=== PATIENT | female | born 1955 | race Caucasian/White ===

== ENCOUNTER 2016-09-27 09:36 | Day surgery (SDC) | payer BC, OTHER ==
[2016-09-22 08:05] VITALS: BMI 25.4
[~2016-09-27 09:36] MED LIST: DEXAMETHASONE SOD PHOSPHATE 10 MG/ML 1 ML VIAL IV ONE; LACTATED RINGERS 1,000 ML IV SCH; MIDAZOLAM 2 MG/2 ML VIAL IV PRN; ONDANSETRON 4 MG/2 ML VIAL IVP ONE; Pre Op ABX Message 1 EACH MISC MISCELLANE ONE
[2016-09-27] MEDS ORDERED: LIDOCAINE 1% 20 ML VIAL (10MG/ML) FOR IV START INTRADERMA ONE (10:44)
[2016-09-27] MEDS ORDERED: ceFAZolin 1,000 MG in DEXTROSE/WATER 1 50ML.BAG IVPB STA (10:45)
[2016-09-27 10:58] LABS: Basophils % (A) 1 %; CH 30.3; CHCM 34.1; Eosinophils # (A) 0.2 k/uL (0-0.7); Eosinophils % (A) 3 %; HCT 38.3 % (34.0-46.0); HDW 2.72; HGB 12.9 gm/dL (11.4-16.0); Luc # (Auto) 0.14; Luc % (Auto) 2; Lymphocytes # (A) 2.1 k/uL (1.0-4.8); Lymphocytes % (A) 37 %; MCHC 33.7 g/dL (31.0-37.0); Mean Platelet Volume 6.8; Monocytes # (A) 0.3 k/uL (0-1.0); Monocytes % (A) 5 %; Neutrophils % (A) 53 %; RDW 13.9 % (11.5-15.5); WBC 5.6 k/uL (3.8-10.6); WBC (Perox) 5.75
[2016-09-27] MEDS ORDERED: SUCCINYLCHOLINE CHLORIDE 100 MG/5 ML SYR IV ONE (12:37)
[2016-09-27] MEDS ORDERED: LIDOCAINE 1% INJ 10MG/ML (20 ML MDV) ONE (12:37)
[2016-09-27] MEDS ORDERED: ROCURONIUM BROMIDE 10 MG/ML 10 ML VIAL IV ONE (12:37)
[2016-09-27] MEDS ORDERED: GLYCOPYRROLATE 0.2 MG/ML 2 ML VIAL ONE (12:37)
[2016-09-27] MEDS ORDERED: PROPOFOL 10 MG/ML 20 ML VIAL IV ONE (12:37)
[2016-09-27] MEDS ORDERED: MIDAZOLAM 2 MG/2 ML VIAL ONE (12:37)
[2016-09-27] MEDS ORDERED: PHENYLEPHRINE-0.9% NACL SYG 1 MG/10 ML SYRINGE ONE (12:37)
[2016-09-27] MEDS ORDERED: fentaNYL (PF) 50 MCG/ML 2 ML AMP ONE (12:37)
[2016-09-27] MEDS ORDERED: NEOSTIGMINE 1 MG/ML 10 ML VIAL ONE (12:37)
[2016-09-27] MEDS ORDERED: LACTATED RINGERS 1,000 ML IV ONE (13:45)
[2016-09-27] MEDS: HYDROmorphone 1 MG/ML 1 ML SYRINGE IVP PRN ×4 (14:46→15:10)
[2016-09-27 14:50] VITALS: TEMP 97.6
[2016-09-27] MEDS ORDERED: ONDANSETRON 4 MG/2 ML VIAL IVP ONE (15:22)
[2016-09-27 15:35] VITALS: RESP 18
[2016-09-27 15:49] VITALS: BP 146/67; PULSE 84
--- NOTE | 2016-09-28 06:36 | OP ---
DATE OF SERVICE: 09/27/2016 SURGEON: MARCIA ANAYA MD [employer] HELPER: PREOPERATIVE DIAGNOSES: 1. 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 2. Personal history of breast cancer. 3. 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 4. Acquired loss right and left breast inframammary fold. POSTOPERATIVE DIAGNOSES: 1. 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 2. Personal history of breast cancer. 3. 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 4. Acquired loss right and left breast inframammary fold. OPERATION: 1. Replace right breast tissue catch basin cleaner with silicone breast implant for right breast reconstruction. 2. Revise right reconstructed breast. 3. Replace left breast tissue catch basin cleaner with silicone breast implant for left breast reconstruction. 4. Revise left reconstructed breast. 5. Reconstruction of right and left breast inframammary folds via local advancement flaps, 35 sq cm. 6. Implantation of reconstructive graft for right and left breast reconstruction. ANESTHESIA: ESTIMATED BLOOD LOSS: SPECIMENS REMOVED: COMPLICATIONS: OPERATIVE FINDINGS: OPERATIVE INDICATIONS: The patient is a 61-year-old female who has undergone bilateral mastectomies for breast cancer. She elected upon immediate reconstruction via tissue catch basin cleaner technique. Her tissue expanders were placed following her mastectomies and she completed subsequent outpatient expansion. She is now returning to surgery for replacement of her tissue expanders, correction of contour irregularities and asymmetries caused by the mastectomy and reconstructive process as well as reconstruction of right and left inframammary fold. She understands the potential risks and complications of today's surgery and has requested that I perform this surgery. OPERATIVE PROCEDURE SUMMARY: The patient was seen in presurgical area. Markings were made. Procedure reviewed, all questions answered. She was then transported to the operating room where she was placed in supine position. Following induction of general endotracheal anesthesia, the patient was prepped and draped in the usual fashion. All surgery performed under loupe magnification. The surgery was initiated on the right side. The surgical incision site was diagrammed with skin marker. Incision made in transverse fashion, dividing the skin in full-thickness fashion followed by elevation of skin and subcutaneous tissue flaps off the underlying muscle fascial layer. This was completed with cauterization. Extensive dissection was required to release contour irregularities from her prior surgeries and allow for redraping of the skin following today's procedure to optimize the result. Once this was completed, vertical style incision was made through the muscle flap tissue following the breast meridian exposing the catch basin cleaner. The catch basin cleaner was removed intact, contained 500 mL of saline. The expansion cavity appeared normal, serous fluid, no granulation tissue, no exudates. The cavity was irrigated. Complete capsulotomy incision was made where the capsule joined the chest wall and then multiple cruciate incisions made through the expansion capsule in all of locations to release the structure inferiorly. Dissection was performed for elevation of her inframammary fold flap. The patient's inframammary fold was partially effaced. The flap contained skin and subcutaneous tissue. It was dissected through the inferior capsulotomy incision off the muscle fascial layers and measuring 17 cm transversely x 1 cm vertically. Once completed, the flap was advanced cephalad and secured to the chest wall periosteal rib structure as well thickened. Posterior wall capsular structure using interrupted 2-0 Vicryl sutures creating discrete inframammary fold. The irrigation was performed. Hemostasis was excellent. A temporary breast implant and sizer was opened on the field and inserted into the reconstructive cavity measuring 600 mL It appeared optimal. Attention was turned towards the left side. The incision diagram was drawn slightly different based on the patient's prior mastectomy scar still ( ) in a transverse fashion with a hockey stick at the end. Incision made following the diagram placed using a 10 blade scalpel, dividing the skin in full-thickness fashion then skin and subcutaneous tissue flaps were elevated off the underlying muscle flap layer. Extensive dissection was required to release contour irregularities caused by her prior surgeries. With this completed a vertical incision was then made through the muscle flap layer exposing the tissue catch basin cleaner following the breast meridian. The catch basin cleaner was removed intact and contained 500 mL of fluid. The expansion cavity appeared normal with serous fluid. No granulation tissue, no exudates. It was irrigated. Again a complete capsulotomy incision was made where the capsule joined the chest wall. Multiple cruciate incisions made through the capsule released the tightness of the structure. Additional dissection was required medial and cephalad to release the adhesions that caused visibly discrete step off. Hemostasis was maintained with cautery. Inferiorly, the dissection was performed through the lower capsulotomy incision, elevating the skin and subcutaneous tissue flap for reconstruction of left inframammary fold. The tissue was dissected off the muscle fascial layer, contained skin and subcutaneous tissue with cauterization measuring 18 cm transversely x 1 cm vertically. The flap was advanced cephalad and secured to the periosteal tissues and thickened posterior wall expanded tissues using interrupted 2-0 Vicryl sutures. A discrete inframammary fold was created in symmetrical location to the right side. Cavity was irrigated. Hemostasis was excellent. A temporary breast implant sizer opened on the field measuring 600 mL inserted in the reconstructive cavity and the patient incisions were temporarily closed with joaquín in right and left side and she was placed in seated up position. The result was as desired. She was returned to supine position. Temporary closure joaquín were removed and both temporary breast implant sizers were removed. Both cavities were irrigated. Hemostasis was excellent. Gloves were changed and the right-sided breast implant was opened on the field from the [employer], style 4000, smooth measuring 600 mL, reference #[id number], serial #[id number]. Device was only handled by surgeon after irrigating with saline and inserted in the reconstructive cavity. Skin was temporary closed over the implant with interrupted joaquín. Gloves were changed again and the implant was opened, this was for the left side, same style and reference number. The serial number for the left-sided device was [id number]. Device was again only handled by the surgeon after irrigating with saline and inserted in the reconstructive cavity. At this point, the muscle flap tissue was reapproximated from cephalad to caudad over the implant, however, distally the tension placed in muscle for closure was creasing the implant. Therefore some sutures released. SurgiMend reconstructive graft measuring 10 x 15 cm opened on the field; 2 pieces were used. Once revitalized in room temperature saline, one piece of SurgiMend was placed for the left side in ( ) sling fashion spanning the gap where the muscle could not be approximated and also overlapping the muscle flap as well providing buttress function. The SurgiMend was inset to the muscle flap tissue using interrupted and short running second 3-0 Vicryl sutures. The second piece of SurgiMend was used on the right side for the same purpose after the cephalad portion of muscle flap was approximated. Both implants were now covered with a combination muscle flap and implanted graft. Hemostasis remained excellent. The incisions were closed on both sides by approximating the deep dermis sheath in inverted, interrupted 4-0 Monocryl followed by closure of superficial dermis and epidermal layer using running 5-0 Prolene suture. Surgical pearson were cleansed with saline, dried, and postoperative bandages were placed using 4 x 4 secured with 3M Medipore tape and position mammary support. The patient was then awakened from her anesthetic, extubated and transferred to the recovery room in good condition with stable vital signs. There were no complications. MTDD
== END 2016-09-27 16:11 | disposition home or self-care (01) ==
LOC: OR 09:36
PROVIDERS: ATTEND Plastic Surgery
DX: N65.0 Deformity of reconstructed breast (principal); Z85.3 Personal history of malignant neoplasm of breast; Z90.13 Acquired absence of bilateral breasts and nipples; I10 Essential (primary) hypertension; E78.5 Hyperlipidemia, unspecified; E07.9 Disorder of thyroid, unspecified; K21.9 Gastro-esophageal reflux disease without esophagitis; Z79.899 Other long term (current) drug therapy
CPT/HCPCS: 85025; 11970; 19380; 15777; C1789; C1763; J2250; J1100; J2710; J2405; J2001; J3010; J1170; J0690; J2370; J0330; J2704

== ENCOUNTER 2017-06-12 05:52 | Day surgery (SDC) | payer OTHER ==
[2017-06-09 08:54] VITALS: BMI 26.6
[~2017-06-12 05:52] MED LIST changes: +HEPARIN SODIUM,PORCINE 5,000 UNIT/ML 1 ML VIAL SQ ONE; +HYDROmorphone 0.5 MG/0.5 ML SYRINGE IVP PRN; +LIDOCAINE 1% 20 ML VIAL (10MG/ML) FOR IV START INTRADERMA PRN; -MIDAZOLAM 2 MG/2 ML VIAL IV PRN; -ONDANSETRON 4 MG/2 ML VIAL IVP ONE; -Pre Op ABX Message 1 EACH MISC MISCELLANE ONE; +ceFAZolin IN SWFI 2 GM/20 ML SYRINGE IVP ONE
[2017-06-12 06:55] VITALS: RESP 16; TEMP 98.4
[2017-06-12] MEDS ORDERED: BUPIVACAINE (PF) 0.25% 30 ML VIAL SQ ONE ×2 (07:18)
--- NOTE | 2017-06-12 07:52 | P.GSHP ---
History of Present Illness H&P Date: 06/12/17 Chief Complaint: Breast cancer Patient here today for Port-A-Cath removal. Patient recently treated for right breast cancer. Patient had no issues with her port during that time. Last used approximately 2 months ago. Past Medical History Past Medical History: Cancer, GERD/Reflux, Hyperlipidemia, Hypertension, Thyroid Disorder Additional Past Medical History / Comment(s): HX. BREAST CANCER- CHEMO 2016; MIGRAINES History of Any Multi-Drug Resistant Organisms: None Reported Past Surgical History: Breast Surgery, Cholecystectomy, Tubal Ligation Additional Past Surgical History / Comment(s): Breast biopsies. BILATERAL SIMPLE MASTECTOMIES Stent in sinuses-then removed. Past Anesthesia/Blood Transfusion Reactions: No Reported Reaction Smoking Status: Never smoker - Past Family History Sister(s) Family Medical History: Cancer Additional Family Medical History / Comment(s): breast Daughter(s) Family Medical History: Deep Vein Thrombosis (DVT) Medications and Allergies Home Medications Medication Instructions Recorded Confirmed Type Felodipine [Felodipine ER] 2.5 mg PO HS 10/19/15 06/12/17 History ALPRAZolam [Xanax] 0.25 mg PO BID PRN 10/20/15 06/12/17 History Atorvastatin [Lipitor] 80 mg PO HS 10/20/15 06/12/17 History Levothyroxine Sodium [Synthroid] 75 mcg PO HS 10/20/15 06/12/17 History Sertraline [Zoloft] 200 mg PO HS 10/20/15 06/12/17 History Anastrozole [Arimidex] 1 mg PO DAILY 09/22/16 06/12/17 History Loratadine [Claritin] 10 mg PO DAILY PRN 09/22/16 06/12/17 History Omeprazole [PriLOSEC] 20 mg PO AC-BID PRN 09/22/16 06/12/17 History traZODone HCL [Trazodone HCl] 50 mg PO HS 09/22/16 06/12/17 History Fenofibrate [Lofibra] 54 mg PO DAILY 06/09/17 06/12/17 History Allergies Allergy/AdvReac Type Severity Reaction Status Date / Time No Known Allergies Allergy Verified 06/12/17 06:37 Surgical - Exam Vital Signs Temp Pulse Resp BP Pulse Ox 98.4 F 86 16 119/71 96 06/12/17 06:46 06/12/17 06:46 06/12/17 06:46 06/12/17 06:46 06/12/17 06:46 Physical exam: General: Well-developed, well-nourished HEENT: Normocephalic, sclerae nonicteric Abdomen: Nontender, nondistended Extremities: No edema Neuro: Alert and oriented Assessment and Plan (1) Breast CA Narrative/Plan: Will proceed with Port-A-Cath removal of this time. Current Visit: No Status: Acute Code(s): C50.919 - MALIGNANT NEOPLASM OF UNSP SITE OF UNSPECIFIED FEMALE BREAST SNOMED Code(s): 383139295
[2017-06-12] MEDS ORDERED: PROPOFOL 10 MG/ML 20 ML VIAL IV ONE (08:02)
[2017-06-12] MEDS ORDERED: MIDAZOLAM 2 MG/2 ML VIAL ONE (08:02)
[2017-06-12] MEDS ORDERED: LIDOCAINE 1% INJ 10MG/ML (20 ML MDV) ONE (08:02)
[2017-06-12 08:34] VITALS: PULSE 82
[2017-06-12] MEDS ORDERED: NALOXONE 0.4 MG/ML 1 ML VIAL IV PRN (08:37)
--- NOTE | 2017-06-12 08:51 | P.OP ---
Date of Procedure: 06/12/17 Procedure(s) Performed: PREOPERATIVE DIAGNOSIS: Breast cancer POSTOPERATIVE DIAGNOSIS: Same PROCEDURE: Port-A-Cath removal SURGEON: Sarah EBL: Minimal ANESTHESIA: Sedation COMPLICATIONS: None OPERATIVE PROCEDURE: Patient was placed in the supine position. The patient was sedated per anesthesia that time. The chest was prepped and draped in the usual sterile fashion. The skin was localized with Marcaine solution. The previous incision was re-incised using a scalpel. The port was easily excised using accommodation of blunt dissection sharp dissection and electrocautery. The subcutaneous tissues were reapproximated using 3-0 Vicryl sutures. The skin was reapproximated using 4-0 Monocryl sutures. Steri-Strips and sterile dressings were then applied. DISPOSITION: Stable to recovery room
[2017-06-12 08:53] VITALS: BP 123/74
== END 2017-06-12 09:29 | disposition home or self-care (01) ==
LOC: OR 05:52
PROVIDERS: ATTEND Surgery
DX: Z45.2 Encounter for adjustment and management of vascular access device (principal); C50.911 Malignant neoplasm of unspecified site of right female breast; Z92.21 Personal history of antineoplastic chemotherapy; Z80.3 Family history of malignant neoplasm of breast; K21.9 Gastro-esophageal reflux disease without esophagitis; E78.5 Hyperlipidemia, unspecified; I10 Essential (primary) hypertension; E07.9 Disorder of thyroid, unspecified; G43.909 Migraine, unspecified, not intractable, without status migrainosus; Z98.51 Tubal ligation status; Z79.890 Hormone replacement therapy; Z79.899 Other long term (current) drug therapy
CPT/HCPCS: 36590; J2250; J1644; J1100; J2001; J2704